=== PATIENT | male | born 1960 | race Asian ===

== ENCOUNTER 2016-12-06 11:13 | Emergency (ER) | payer BC ==
[~2016-12-06] VITALS: Ht 182.9 cm; Wt 96.6 kg
[2016-12-06 11:58] LABS: PLATELET COUNT 243 K/uL (142-355)
[2016-12-06 12:02] LABS: POTASSIUM 3.3 mmol/L (3.6-5.2)
[2016-12-06 14:27] VITALS: BP 140/92; TEMP 98
== END 2016-12-06 14:29 | disposition left against medical advice (07) ==
LOC: ED 11:13
PROVIDERS: Specialist
DX: I10 Essential (primary) hypertension (principal)
CPT/HCPCS: 36415; 80048; 81000; 83735; 84100; 85027; 96360; 96361; 96374; 99284; J0360

== ENCOUNTER 2017-05-24 12:27 | Emergency (ER) | payer BC ==
[~2017-05-24] VITALS: Ht 180.3 cm; Wt 88.9 kg
[2017-05-24 12:42] VITALS: TEMP 98.5
[2017-05-24 14:20] VITALS: BP 177/133
== END 2017-05-24 14:21 | disposition home or self-care (01) ==
LOC: ED 12:27
DX: S40.011A Contusion of right shoulder, initial encounter (principal); I10 Essential (primary) hypertension; W17.89XA Other fall from one level to another, initial encounter; Y92.098 Other place in other non-institutional residence as the place of occurrence of the external cause
CPT/HCPCS: 99283